=== PATIENT | male | born 1980 | race African-American/Black ===

== ENCOUNTER 2019-05-06 17:06 | Emergency (ER) | payer SELFPAY ==
[2019-05-06 17:21] VITALS: BP 161/73; PULSE 87; TEMP 98.1; BMI 22.9
[2019-05-06] MEDS ORDERED: SODIUM CHLORIDE 1,000 ML IV SCH (17:30)
--- NOTE | 2019-05-06 17:52 | PDOC ---
History of Present Illness - General Chief Complaint: Weakness Stated Complaint: STROKE Time Seen by Provider: 05/06/19 17:34 History Source: Patient Exam Limitations: No Limitations, Other (patient refuses to cooperate, won't give name or information) - History of Present Illness Initial Comments: 05/06/19 17:39 HPI: 38yo M, unknown name / SSN using multiple aliases between [place] and [place] over recent weeks reporting history of sickle cell disease and stroke requiring TPA 2 years ago presenting with let sided weakness for [address], demanding pain medication to make him feel more comfortable laying down. When told he could not have pain medication he packed up his belongings and left. All: Unclear allergies, no reactions know / verified NIH Stroke Scale - Last Known Well Date/Time & Onset Date Last Known Well: 04/29/19 Time Last Known Well: 16:30 - Initial Evaluation Level of consciousness: Alert Ask patient the month and their age: Answers both correctly Ask patient to open & close eyes; make fist and let go: Obeys both correctly Best gaze (horizontal eye movement): Normal Visual field testing: No visual field loss Facial paresis (Show teeth/raise eyebrows/close eyes tight): Normal symmetrical movement Motor Function: Left Arm: No movement Motor Function: Right Arm: Normal (extends arm 90 (or 45) degrees for 10 seconds without drift Motor Function: Left Leg: No movement Motor Function: Right Leg: Normal (extends leg 30 degrees for 5 seconds without drift) Limb Ataxia: No ataxia Sensory(Use pinprick test arms,legs,trunk,face/side to side): Mild to moderate decrease in sensation Best language (Describe picture, name items, read sentences): No Aphasia Dysarthria (read several words): Normal articulation Extinction and Inattention: No abnormality - Total Score NIH Stroke Scale Score: 9 Past History - Travel Traveled outside of the country in the last 30 days: No Close contact w/someone who was outside of country & ill: No - Past Medical History Allergies/Adverse Reactions: Allergies Allergy/AdvReac Type Severity Reaction Status Date / Time haloperidol [From Haldol] Allergy Verified 05/06/19 17:13 iodine Allergy Verified 05/06/19 17:13 ketamine Allergy Verified 05/06/19 17:13 ketorolac [From Toradol] Allergy Verified 05/06/19 17:13 NSAIDS (Non-Steroidal Allergy Verified 05/06/19 17:13 Anti-Inflamma risperidone [From Risperdal] Allergy Verified 05/06/19 17:13 Cardiac Disorders: Yes (stemi, stents) CVA: Yes COPD: No Other medical history: sickle cell - Psycho Social/Smoking Cessation Hx Smoking History: Never smoked Review of Systems - Review of Systems Able to Perform ROS?: No (Patient left department) Is the patient limited Amharic proficient: No *Physical Exam - Vital Signs Last Vital Signs Temp Pulse Resp BP Pulse Ox 98.1 F 87 18 161/73 100 05/06/19 17:13 05/06/19 17:13 05/06/19 17:13 05/06/19 17:13 05/06/19 17:13 - Physical Exam 05/06/19 17:55 AFVSS See stroke scale, patient left department before further exam Stroke scale largely volitional, patient is able to ambulate out of department, moves and doesn't move eyes at random, wears a mask and takes much discussion to remove it to evaluate facial droop. Medical Decision Making - Medical Decision Making 05/06/19 18:03 38yo M with prior presentations with different names and complaints, consistently demanding pain medication before leaving AMA, presenting with L sided apparent paralysis, refused [facility] because he was not given pain medication in advance, miraculously put on his coat and walked out of the department (eloped). DDX: CVA vs drug seeking behavior. Unable to evaluate fully in setting of adamant demands for Dilaudid and subsequent elopement. - [facility] Refused - NIHSS, initially 9, resolved as patient walked out - Offered CT, Neuro evaluation, Admission - patient refused 05/06/19 18:20 Patient requested to leave AMA. Patient is determined to be of sound mind and reasoning. The patient fully understands the care they are refusing and the risks associated with leaving before complete medical evaluation as explained by the medical team. The patient has been provided with a discharge summary, return precautions, and the reassurance that the Emergency Department will resume workup if the patient changes their mind. Immediate primary care follow up has been urged. Discharge - Discharge Information Problems reviewed: Yes Clinical Impression/Diagnosis: Left against medical advice Condition: Improved Disposition: ELOPED - Admission No - Follow up/Referral - Patient Discharge Instructions Additional Instructions: You are leaving against medical advice and refusing evaluation and treatment of likely acute stroke. It is essential that you follow up with your primary care physician within the next 1-2 days. Please return to the Emergency Department if you change your mind and wish to continue evaluation of your symptoms or if you experience any of the following: - worsening of your symptoms - chest pain - shortness of breath and/or difficulty breathing - seizure - changes in behavior - lightheadedness, and/or dizziness - severe abdominal pain - severe or bloody vomiting - bloody diarrhea - inability to eat or drink - anything that concerns you - Post Discharge Activity
--- NOTE | 2019-05-06 18:08 | PDOC ---
Documentation entered by Khadra Vela SCRIBE, acting as scribe for Kiley Osuna MD. Kiley Osuna MD: This documentation has been prepared by the Mirian galloway Adrianna, SCRIBE, under my direction and personally reviewed by me in its entirety. I confirm that the documentation accurately reflects all work, treatment, procedures, and medical decision making performed by me. Attending Attestation - Resident Resident Name: Darren Pickett - ED Attending Attestation I have performed the following: I have examined & evaluated the patient, The case was reviewed & discussed with the resident, I agree w/resident's findings & plan, Exceptions are as noted - HPI HPI: 05/06/19 17:53 Mr. Ramos presents to the emergency department via EMS with a complaint of left- sided weakness which began approximately 1 hour ago Leandra de jesus called immediately Patient transported on EMS stretcher to CT scan where patient refused CT Patient states he is unwilling to have CT scan until he receives pain medications Patient transported back to the emergency department When told of the urgency/priority of doing a CT without contrast to rule out ICH above giving DILAUDID The patient re iterates he refuses any medical testing or treatment until he gets DILAUDID 05/06/19 17:55 05/06/19 18:02 05/07/19 17:15 - Physicial Exam PE: 05/06/19 17:58 Pt is fully gowned, jacket, hoodie, face mask Pt refusing to allow us to disrobe him He is awake and alert He is responsive to all questions Pt is in no respiratory distress Unable to perform Cardiac examination as patient is fully dressed Unable to perform pulmonary examination as patient is fully dressed Pt face is partially covered, visualized portion of face is symmetric Speech is clear - Medical Decision Making 05/06/19 18:03 Mr Ramos presents to the ER with a complaint of possible stroke like symptoms Pt will not permit us to disrobe him, do CT scan, place IV, draw labs Pt is interested ONLY in receiving DILAUDID ONLY Pt repeatedly encouraged to stay in the hospital for further management Pt told that we are paging the Neurologist, we will admit to the hospitalist service for further work up We will eventually give him pain medications but we need to initiate the stroke work up MARCIAL When asked if he was seen at [facility] last week by me, the patient states NO Then tells another examiner that he does not like black doctors The patient is REFUSING to stay in the hospital Pt state he wants to go to another hospital and his aunt is going to bring him to another hospital Pt ambulatory out of the ER now No weakness visualized
== END 2019-05-06 17:56 | disposition left against medical advice (07) ==
LOC: JER 17:06
DX: Z53.29 Procedure and treatment not carried out because of patient's decision for other reasons (principal)
CPT/HCPCS: 99281-25